=== PATIENT | female | born 1945 | race Caucasian/White ===

== ENCOUNTER → 2018-03-20 | Outpatient (CLI) | payer MEDICARE, BC ==
--- NOTE | 2018-03-20 12:17 | Diagnostic Imaging Report ---
PROCEDURE:X-RAY MODIFIED BARIUM SWALLOW COMPARISON:None. INDICATIONS:Dysphasia with GERD DISCUSSION:Fluoroscopic examination was performed in conjunction with speech pathology, during swallowing of a variety of thin and thick liquid consistencies. Fluoroscopy time: Not accurately recorded Cumulative area dose product: 13.53 cGycm2 CONCLUSION:No penetration or aspiration. Prominent cricopharyngeus muscle impression on the posterior aspect of the cervical esophagus. Please see the report from speech pathology for complete details. Tonio Barrientos D.O. Dictated by: Tonio Barrientos D.O. on 03/20/2018 at 12:21 Electronically approved by: Tonio Barrientos D.O. on 03/20/2018 at 12:21
== END ==
LOC: DX 08:47
PROVIDERS: ATTEND Internal Medicine Gastroenterology
DX: R13.13 Dysphagia, pharyngeal phase (principal)
CPT/HCPCS: 74230; 92611; G8996; G8997; G8998